=== PATIENT | female | born 1930 | race Caucasian/White ===

== ENCOUNTER 2018-08-18 11:40 | Emergency (ER) | payer OTHER, MEDICARE ==
[2018-08-18 11:51] VITALS: BP 143/54
--- NOTE | 2018-08-18 12:32 | EDM.PDOC ---
ED HPI GENERAL MEDICAL PROBLEM - General Chief Complaint: General Stated Complaint: left neck, shoulder, back pain Time Seen by Provider: 08/18/18 11:40 Source of Information: Reports: Patient History Limitations: Reports: No Limitations - History of Present Illness INITIAL COMMENTS - FREE TEXT/NARRATIVE: Patient is a 87-year-old female who is seen in the emergency room secondary to neck pain patient complains of bilateral neck pain worse on the left than the right patient has history of vertebral plasty Onset: Gradual Duration: Day(s):, Getting Worse Location: Reports: Neck Quality: Reports: Sharp Severity: Moderate Improves with: Reports: Heat Therapy, Immobilization Worsens with: Reports: None Context: Reports: Activity (Denies any falls or trauma) Associated Symptoms: Reports: No Other Symptoms Treatments RINKMAN: Reports: Acetaminophen left neck, back, shoulder Pain Score (Numeric/FACES): 5 - Related Data Allergies Allergy/AdvReac Type Severity Reaction Status Date / Time No Known Allergies Allergy Verified 08/18/18 11:51 Home Meds: Home Meds Acetaminophen 650 mg PO Q4H PRN 11/24/14 [History] Amoxicillin [Amoxil] 2,000 mg PO ASDIRECTED PRN 11/24/14 [History] Calcium Carbonate/Vitamin D3 [Os-Henry 500+D] 1 tab PO TID 11/24/14 [History] Citalopram Hydrobromide [Citalopram HBr] 1.5 tab PO DAILY 11/24/14 [History] Hydrochlorothiazide 25 mg PO DAILY 11/24/14 [History] Magnesium Oxide [Magnesium] 400 mg PO BID 11/24/14 [History] Metoprolol Tartrate [Lopressor] 50 mg PO DAILY 11/24/14 [History] Multivitamin [Multivitamins] 1 tab PO DAILY 11/24/14 [History] Potassium Chloride 10 meq PO BID 11/24/14 [History] Simvastatin 40 mg PO BEDTIME 11/24/14 [History] Warfarin Sodium 2.5 mg PO ASDIRECTED 11/24/14 [History] Cyclobenzaprine [Flexeril] 10 mg PO TID #30 tab 08/18/18 [Rx] Past Medical History HEENT History: Reports: Impaired Vision Cardiovascular History: Reports: Blood Clots/VTE/DVT, High Cholesterol, Hypertension Respiratory History: Reports: None Gastrointestinal History: Reports: Chronic Diarrhea Genitourinary History: Reports: None [employer] History: Reports: Musculoskeletal History: Reports: Back Pain, Chronic, Osteoarthritis, Osteoporosis Neurological History: Reports: None Psychiatric History: Reports: Anxiety, Depression Endocrine/Metabolic History: Reports: Osteoporosis Oncologic (Cancer) History: Reports: None Dermatologic History: Reports: None - Infectious Disease History Infectious Disease History: Reports: Measles, Mumps - Past Surgical History HEENT Surgical History: Reports: Cataract Surgery Cardiovascular Surgical History: Reports: None Respiratory Surgical History: Reports: None GI Surgical History: Reports: Colonoscopy Female Surgical History: Reports: None Musculoskeletal Surgical History: Reports: Other (See Below) Other Musculoskeletal Surgeries/Procedures:: veterbroplasty Social & Family History - Tobacco Use Smoking Status *Q: Never Smoker - Caffeine Use Caffeine Use: Reports: Coffee ED ROS GENERAL - Review of Systems Review Of Systems: See Below Constitutional: Reports: No Symptoms HEENT: Reports: No Symptoms Respiratory: Reports: No Symptoms Cardiovascular: Reports: No Symptoms Endocrine: Reports: No Symptoms GI/Abdominal: Reports: No Symptoms : Reports: No Symptoms Musculoskeletal: Reports: Neck Pain, Muscle Pain, Muscle Stiffness Skin: Reports: No Symptoms Neurological: Reports: No Symptoms Psychiatric: Reports: No Symptoms Hematologic/Lymphatic: Reports: No Symptoms Immunologic: Reports: No Symptoms ED EXAM, GENERAL - Physical Exam Exam: See Below Exam Limited By: No Limitations General Appearance: Alert, WD/WN, No Apparent Distress Ears: Normal External Exam, Normal Canal, Hearing Grossly Normal, Normal TMs Nose: Normal Inspection, Normal Mucosa, No Blood Throat/Mouth: Normal Inspection, Normal Lips, Normal Teeth, Normal Gums, Normal Oropharynx, Normal Voice, No Airway Compromise Head: Atraumatic, Normocephalic Neck: Limited Range of Motion, Tender Lateral Respiratory/Chest: Decreased Breath Sounds, Stridor, Prolonged Expiration Cardiovascular: Normal Peripheral Pulses, Regular Rate, Rhythm, No Edema, No Gallop, No JVD, No Murmur, No Rub GI/Abdominal: Normal Bowel Sounds, Soft, Non-Tender, No Organomegaly, No Distention, No Abnormal Bruit, No Mass (Female) Exam: Normal External Exam, Normal Speculum Exam, Normal Bimanual Exam Rectal (Female) Exam: Normal Exam, Normal Rectal Tone Back Exam: Normal Inspection, Decreased Range of Motion, Muscle Spasm, Paraspinal Tenderness Extremities: Normal Inspection, Normal Range of Motion, Non-Tender, Normal Capillary Refill, No Pedal Edema Neurological: Alert, Oriented, CN II-XII Intact, Normal Cognition, Normal Gait, Normal Reflexes, No Motor/Sensory Deficits Psychiatric: Normal Affect, Normal Mood Skin Exam: Warm, Dry, Intact, Normal Color, No Rash Lymphatic: No Adenopathy Course - Vital Signs Last Recorded V/S: Last Vital Signs Temp 97.7 F 08/18/18 11:45 Pulse 87 08/18/18 11:45 Resp 18 08/18/18 11:45 BP 143/54 H 08/18/18 11:45 Pulse Ox 98 08/18/18 11:45 - Orders/Labs/Meds Orders: Active Orders 24 hr Category Date Time Status Cervical Spine 2V or 3V [CR] Stat Exams 08/18/18 12:24 Taken Departure - Departure Time of Disposition: 13:45 Disposition: Home, Self-Care 01 Clinical Impression: Neck pain, acute - Discharge Information *PRESCRIPTION DRUG MONITORING PROGRAM REVIEWED*: Not Applicable *COPY OF PRESCRIPTION DRUG MONITORING REPORT IN PATIENT CARLIE: Not Applicable Prescriptions: Cyclobenzaprine [Flexeril] 10 mg PO TID #30 tab Instructions: Cyclobenzaprine tablets, Muscle Pain, Adult Referrals: Diann Colindres PA-C [Primary Care Provider] - Forms: ED Department Discharge Additional Instructions: Follow-up with regular provider in 5-7 days if the your symptoms do not improve. Use OTC Tylenol, muscle rub, and ice/heat for pain as needed. Take Flexeril as prescribed. - My Orders Last 24 Hours: My Active Orders 08/18/18 12:24 Cervical Spine 2V or 3V [CR] Stat - Assessment/Plan Last 24 Hours: My Active Orders 08/18/18 12:24 Cervical Spine 2V or 3V [CR] Stat
== END 2018-08-18 13:45 | disposition home or self-care (01) ==
LOC: LL.ED 11:40
DX: M54.2 Cervicalgia (principal); I10 Essential (primary) hypertension; Z79.899 Other long term (current) drug therapy
CPT/HCPCS: 72040; 99283